=== PATIENT | female | born 1985 | race Caucasian/White ===

== ENCOUNTER 2017-09-22 12:20 | Day surgery (SDC) | payer OTHER ==
[~2017-09-22 12:20] MED LIST: HYDROCODONE/APAP 5/325 TAB PO SCH
--- NOTE | 2017-09-22 12:58 | EDPHY ---
H & P Stated Complaint: pt states is newly with spotting and cramping Time Seen by Provider: 09/22/17 12:57 HPI/ROS: CHIEF COMPLAINT: Vaginal spotting, positive home HISTORY OF PRESENT ILLNESS: The patient is a P0, G0 32 y/o female with a history of PCOS arriving with her for evaluation of vaginal spotting for the last 7 days and a positive home test last night. Her last menstrual period was in June, but she normally has irregular periods. She and her began trying to get for the last month. Over the last 7 days she has noticed small drops of brown blood with associated lower abdominal cramping, bloating, back pain, and breast tenderness. She denies fever , flank pain, dysuria, sore throat, recent illness, or recent trauma. She is otherwise healthy. REVIEW OF SYSTEMS: A ten point review of systems was performed and is negative with the exception of the items mentioned in the HPI. She has had a mild cough and rhinorrhea over the last month that was evaluated by her PCP. Past medical history: 1. PCOS Past surgical history: Denies Family history: Noncontributory Social history: at bedside. Nonsmoker. Drinks wine once per week. OBGYN : JASVIR Farias [facility] General Appearance: Alert. Vital signs reviewed. * Eyes: Pupils equal and round, no conjunctival injection, no discharge. Anicteric. ENT, Mouth: Mucous membranes are moist, no oropharyngeal erythema or edema. Neck: No lymphadenopathy, supple. Respiratory: Lungs are clear to auscultation; no wheezes, rales, or rhonchi. Cardiovascular: Regular rate and rhythm; no murmur, rub, or gallop. Gastrointestinal: Abdomen is soft and nontender, no masses or organomegaly, bowel sounds normal. Skin: Warm and dry, no rashes on exposed skin, normal color. Back: Nontender to palpation over the thoracolumbar spine. No CVAT. Extremities: No lower extremity edema, no calf tenderness or swelling. Neurological: Alert and oriented. Moving all four extremities easily and equally. Psychiatric: Normal affect. - Personal History LMP (Females 10-55): Over 28 Days Ago Current Tetanus/Diphtheria Vaccine: No - Medical/Surgical History Hx Asthma: No Hx Chronic Respiratory Disease: No Hx Diabetes: No Hx Cardiac Disease: No Hx Renal Disease: No Hx Cirrhosis: No Hx Alcoholism: No Hx HIV/AIDS: No Hx Splenectomy or Spleen Trauma: No Other PMH: denies - Social History Smoking Status: Never smoked Constitutional: Initial Vital Signs Temperature (C) 36.9 C 09/22/17 12:24 Heart Rate 90 09/22/17 12:24 Respiratory Rate 16 09/22/17 12:24 Blood Pressure 104/81 H 09/22/17 12:24 O2 Sat (%) 98 09/22/17 12:24 O2 Delivery Mode Room Air Allergies/Adverse Reactions: No Known Allergies Allergy (Verified 09/22/17 15:35) Home Medications: Medication Instructions Recorded Herbals/Supplements -Info Only 1 ea PO DAILY 09/22/17 Medical Decision Making - Diagnostics Imaging Results: Imaging Impressions Obstetrics Ultrasound 09/22/17 13:42 Impression: Unruptured right ectopic . Results called to Dr. Coles. Imaging: Discussed imaging studies w/ mold shop supervisor Radiologist ED Course/Re-evaluation: This is a healthy 32 y/o female with a history of PCOS who presents with a 7- day history of mild vaginal spotting with associated abdominal cramping, back pain, and breast tenderness. A home test was positive last night. Her exam is unremarkable. Plan for basic labs including BHCG quant, Rh+, and possible pelvic US. Last PO intake 11:00. BHCG quant positive at 7300. Pelvic US ordered. Rh positive. US shows unruptured right tubal ectopic . OBGYN paged. [phone]: Consulted with Dr. Gomez OBGYAna. She plans to take patient to the operating room. I have explained this to the patient and her . Hospital bed has been requested. Patient remains NPO. Differential Diagnosis: Considered a differential diagnosis that includes but is not limited to ectopic , threatened , pain and bleeding associated with early intrauterine , chorionic hemorrhage. - Data Points Laboratory Results: Laboratory Results 09/22/17 12:45 09/22/17 09/22/17 09/22/17 12:48 12:45 12:45 WBC 11.00 10^3/uL H 10^3/uL (3.80-9.50) RBC 4.88 10^6/uL 10^6/uL (4.18-5.33) Hgb 13.6 g/dL g/dL (12.6-16.3) Hct 41.1 % % (38.0-47.0) MCV 84.2 fL fL (81.5-99.8) MCH 27.9 pg pg (27.9-34.1) MCHC 33.1 g/dL g/dL (32.4-36.7) RDW 15.9 % H % (11.5-15.2) Plt Count 308 10^3/uL 10^3/uL (150-400) MPV 11.5 fL fL (8.7-11.7) Neut % (Auto) 58.4 % % (39.3-74.2) Lymph % (Auto) 34.8 % % (15.0-45.0) [place] % (Auto) 5.6 % % (4.5-13.0) Eos % (Auto) 0.6 % % (0.6-7.6) Baso % (Auto) 0.4 % % (0.3-1.7) Nucleat RBC Rel Count 0.0 % % (0.0-0.2) Absolute Neuts (auto) 6.42 10^3/uL 10^3/uL (1.70-6.50) Absolute Lymphs (auto) 3.83 10^3/uL H 10^3/uL (1.00-3.00) Absolute Monos (auto) 0.62 10^3/uL 10^3/uL (0.30-0.80) Absolute Eos (auto) 0.07 10^3/uL 10^3/uL (0.03-0.40) Absolute Basos (auto) 0.04 10^3/uL 10^3/uL (0.02-0.10) Absolute Nucleated RBC 0.00 10^3/uL 10^3/uL (0-0.01) Immature Gran % 0.2 % % (0.0-1.1) Immature Gran # 0.02 10^3/uL 10^3/uL (0.00-0.10) Beta HCG, Quant 7369.70 mIU/mL H mIU/mL (0.00-4.83) Patient ABO/Rh A POSITIVE Departure - Departure Disposition: [facility] Inpatient Acute Clinical Impression: Ectopic Qualifiers: Location of ectopic : tubal Intrauterine status: without intrauterine Laterality: right Qualified Code(s): O00.101 - Right tubal without intrauterine Condition: Fair Report Scribed for: Treasure Coles Report Scribed by: Angelina Darden Date of Report: 09/22/17 Time of Report: 13:38 Physician Review and Approval Statement: 09/22/17 12:58 Portions of this note were transcribed by the medical language specialist. I, Dr. Treasure Coles, personally performed the history, physical exam, and medical decision- making; and confirmed the accuracy of the information in the transcribed note.
[2017-09-22 13:02] LABS: PLATELET COUNT 308 10^3/uL (150-400)
[2017-09-22 15:50] VITALS: PULSE 89
[2017-09-22] MEDS ORDERED: LR 1,000 ML IV ONE (15:51)
[2017-09-22] MEDS ORDERED: BUPIVACAINE 0.5% 30 ML SDV ONE (15:53)
[2017-09-22] MEDS ORDERED: SILVER NITRATE APPLICATOR 1 APPL TP ONE (15:54)
[2017-09-22] MEDS ORDERED: MIDAZOLAM 2 MG/2 ML VIAL IVP ONE (15:58)
--- NOTE | 2017-09-22 15:58 | PDANEPAE ---
ANE History of Present Illness 32 yo for lap for ruptured ectopic ANE Past Medical History - Cardiovascular History Hx Hypertension: No Hx Arrhythmias: No Hx Chest Pain: No Hx Coronary Artery / Peripheral Vascular Disease: No Hx CHF / Valvular Disease: No Hx Palpitations: No - Pulmonary History Hx COPD: No Hx Asthma/Reactive Airway Disease: No Hx Recent Upper Respiratory Infection: No Hx Oxygen in Use at Home: No Hx Sleep Apnea: No - Endocrine History Hx Diabetes: No ANE Review of Systems Review of Systems: - Exercise capacity METS (RN): 4 METS ANE Patient History - Allergies Allergies/Adverse Reactions: No Known Allergies Allergy (Verified 09/22/17 15:35) - Home Medications Home Medications: Herbals/Supplements -Info Only 1 ea PO DAILY 09/22/17 [Last Taken Unknown] - NPO status NPO Since - Liquids (Date): 09/22/17 NPO Since - Liquids (Time): 11:00 NPO Since - Solids (Date): 09/22/17 NPO Since - Solids (Time): 14:30 - Smoking Hx Smoking Status: Never smoked ANE Labs/Vital Signs - Labs Result Diagrams: 09/22/17 12:45 - Vital Signs Blood Pressure: 132/83 Heart Rate: 89 Respiratory Rate: 16 O2 Sat (%): 99 Height: 5 ft 2 in Weight: 64.41 kg ANE Physical Exam - Airway Neck exam: FROM Mallampati Score: Class 2 Mouth exam: normal dental/mouth exam - Pulmonary Pulmonary: no respiratory distress - Cardiovascular Cardiovascular: regular rate and rhythym - ASA Status ASA Status: I, E ANE Anesthesia Plan Anesthesia Plan: general endotracheal anesthesia
[2017-09-22] MEDS ORDERED: PROPOFOL/EMULSION 500 MG/50 ML BOTTLE IV ONE (16:00)
[2017-09-22] MEDS ORDERED: fentaNYL 250 MCG/5 ML INJ ONE (16:00)
[2017-09-22] MEDS ORDERED: MIDAZOLAM 2 MG/2 ML VIAL ONE (16:11)
[2017-09-22] MEDS ORDERED: ceFAZolin 2 GM/SWFI 20 ML SYR IVP ONE (16:18)
--- NOTE | 2017-09-22 17:08 | GHP ---
[f rep st] HISTORY AND PHYSICAL DATE OF ADMISSION: 09/22/2017 ADMITTING DIAGNOSIS: 1. Pelvic pain. 2. Ectopic . HISTORY OF PRESENT ILLNESS: The patient is a 32-year-old, 1, para 0, with a history of PCOS and irregular menstrual cycles. She thinks LMP was the end of May. She comes in with complaints of 2 weeks of lower pelvic pain and cramping, as well as 1 week of spotting. She had a positive urine test done at home last night. Patient presents to the emergency room with her . She and her began trying to get at the beginning of this month. Over the last 7 days she had noticed small drops of brown blood with associated lower abdominal cramping. She endorses bloating and breast tenderness. Denies any fever, chills, nausea, vomiting. She has never had a Pap smear and does not see a routing equipment tender. She recently relocated to [place], and has seen Dinora TAY, here at [facility]. OBSTETRIC HISTORY: Patient is nulliparous. GYNECOLOGIC HISTORY: Age of menarche 14. Cycles are irregular, with a history of PCOS. The patient has never had a Pap smear. Denies any exposure to sexually transmitted diseases. PAST MEDICAL HISTORY: PCOS. PAST SURGICAL HISTORY: Unremarkable. FAMILY HISTORY: Noncontributory. SOCIAL HISTORY: Patient is . She lives with her . She denies any tobacco or illicit drug use. She drinks a glass of wine nightly. MEDICATIONS: None. ALLERGIES: No known drug allergies. REVIEW OF SYSTEMS: A 10-point review of systems is negative. Pertinent positives noted in HPI. LABS: Hemoglobin 13.6, hematocrit 41.1. Beta hCG 7369. Patient is A positive. STUDIES: Transvaginal ultrasound shows a yolk sac is present in the right adnexa surrounded by a round thickened ring, likely represents a focally thickened Fallopian tube. pole is not identified, nor is a heart rate. This is separate from the right ovary, which has a 3.5 cm corpus luteal cyst. There is no free fluid. Endometrium is thickened without an intrauterine fluid collection. Left ovary is unremarkable. There is normal Doppler flow to both ovaries. PHYSICAL EXAMINATION: VITAL SIGNS: On admission, vital signs are stable. GENERAL: Patient is alert, oriented x3, well-nourished, well-developed female in no apparent distress. CARDIOVASCULAR: Regular rate and rhythm. LUNGS: Clear to auscultation without wheezes, rales, or rhonchi. ABDOMEN: Soft, nondistended, mild tenderness b/l lower abdomen. PELVIC: Deferred. EXTREMITIES: Normal to inspection without calf tenderness or edema. ASSESSMENT/PLAN: Patient is a 32-year-old with unsure LMP who presents with lower abdominal pelvic pain, spotting and an ectopic noted on ultrasound. 1. Admit to the PACU. 2. Discussed findings of ultrasound with patient. Recommend proceeding to the operating room for surgical removal of the tube containing the . 3. Surgical consents were obtained. We discussed risks, benefits, alternatives of the procedure including, but not limited to, bleeding, infection , and damage to surrounding organs. Patient understands all risks at this time and wants to proceed to the OR. 4. Antibiotics sanitation director to the OR. 5. SCDs for DVT prophylaxis. 6. Patient is Rh positive, no RhoGam is needed. /[id number]/MODL MTDD
[2017-09-22] MEDS ORDERED: NALOXONE HCL 0.4 MG/ML INJ IVP PRN (17:24)
[2017-09-22] MEDS ORDERED: ONDANSETRON 4 MG/2 ML VIAL IVP PRN (17:24)
[2017-09-22] MEDS ORDERED: HYDROmorphONE/DILAUDID 1 MG/ML INJ IVP PRN (17:24)
[2017-09-22] MEDS ORDERED: fentaNYL 100 MCG/2 ML INJ IVP PRN (17:24)
--- NOTE | 2017-09-22 17:40 | POSTANESTH ---
Post Anesthetic Evaluation Cardiovascular Status: Normal, Stable Respiratory Status: Similar to Pre-op Cond. Level of Consciousness/Mental Status: Can Participate in Eval Pain Control: Adequate, Prn Tx Ordered Nausea/Vomiting Control: Adequate, Prn Tx Ordered Complications Possibly Related to Anesthesia: None Noted
--- NOTE | 2017-09-22 17:43 | POSTOPPROG ---
Post Op Note Date of Operation: 09/22/17 Surgeon: Ewelina Gomez Cement Despatch Operator: Supriya Hdz Anesthesiologist: Dr. Melvin Anesthesia: GET(General Endotracheal) Pre-op Diagnosis: Pelvic pain; Ectopic Post-op Diagnosis: Pevlic pain; Ectopic ; unruptured R ectopic Indication: 32 y/o G1 with ?LMP with lower pelvic pain, spotting and +UPT w/ ectopic Procedure: Dx Laparoscopy with R salpingectomy and removal of ectopic Findings: Grossly normal ut, L tube, & ovary; R ectopic noted-unrupt. and 3 cm CLC Inf/Abcess present in the surg proc area at time of surgery?: No Depth: Organ Space EBL: 50-100 (50 cc) Total fluids administered: 1300 cc LR UO: 200 cc clear urine Complications: None Specimen(s): R fallopian tube with
[2017-09-22] MEDS ORDERED: ceFAZolin 2 GM/SWFI 2 GM/20 ML SYR IVP ONE (17:46)
[2017-09-22] MEDS ORDERED: HYDROCODONE/APAP 5/325 TAB PO PRN (17:48)
[2017-09-22] MEDS ORDERED: HYDROCODONE/APAP 5/325 TAB ONE (18:25)
[2017-09-22] MEDS ORDERED: HYDROmorphONE/DILAUDID 1 MG/ML INJ ONE (18:25)
[2017-09-22 19:06] VITALS: BP 114/82; RESP 16
[2017-09-22 19:23] VITALS: TEMP 97.9
[2017-09-22 19:57] VITALS: O2SAT 97
--- NOTE | 2017-09-25 09:47 | GOP ---
[f rep st] OPERATIVE REPORT DATE OF OPERATION: 09/22/2017 SURGEON: Ewelina Gomez DO PROSTHETICS ASSISTANT: JENNIFER Lira ANESTHESIA: General. PREOPERATIVE DIAGNOSIS: 1. Pelvic pain. 2. Ectopic . POSTOPERATIVE DIAGNOSIS: 1. Pelvic pain. 2. Ectopic . 3. Unruptured right ectopic . PROCEDURE PERFORMED: Laparoscopic right salpingectomy with removal of ectopic . FINDINGS: Grossly normal-appearing uterus, left tube and left ovary. There was an unruptured right ectopic located in the isthmic of the fallopian tube. Upper abdomen is grossly normal appearing. All specimens sent to Pathology. SPECIMENS: Right fallopian tube with ectopic . ESTIMATED BLOOD LOSS: 50 cc. INDICATIONS: Patient is a 32-year-old 1, para 0 with unsure last menstrual period, with a history of irregular cycles secondary to PCOS, who presents to the emergency room with complaints of 2 weeks of pelvic pain and 1 week of brownish, red spotting. The patient did have a positive home test yesterday. Ultrasound was performed in the emergency department showing a right ectopic . After discussion with the patient and , decision was made to perform laparoscopic surgery to remove the ectopic . Surgical consents were obtained. We discussed the risks, benefits, alternatives of procedure including but not limited to bleeding, infection, damage to surrounding organs. Patient understands all risks of the procedure and wants to proceed with surgery at this time. Pt is Rh positive and no RhoGAM is needed. DESCRIPTION OF PROCEDURE: Patient was taken to the operating room, where general anesthesia was obtained without difficulty. The patient was prepped and draped in the usual sterile manner and placed in dorsal lithotomy position. A marsh catheter was placed in the bladder. An open-sided speculum was then placed in the vagina. The anterior lip of the cervix was grasped with a single- tooth tenaculum. Uterus was gently sounded to 8 cm, and then an acorn uterine manipulator was placed through the cervix. Speculum was then removed. Attention was turned to the abdomen. Infraumbilical area was injected with 0.5% plain Marcaine and a 5 mm infraumbilical incision was made with the scalpel. The Veress needle was introduced into the peritoneal cavity while tenting the abdominal wall. Aspiration was negative. Pneumoperitoneum was then created with CO2 gas. A 5 mm trocar with scope was then introduced through the infraumbilical incision under direct visualization showing good entry into peritoneal cavity and good visualization of pelvis. More l0.5% plain Marcaine was and another 5 mm incision was made in the left lower quadrant and a 10 mm incision was made in the right lower quadrant. Trocars were then placed with good visualization of the pelvis. Patient was placed in Trendelenburg position. Pelvic findings noted as above. At this time, a grasper was placed through the left lower quadrant port and the fimbria of the right fallopian tube was grasped. The LigaSure was used to cauterize the mesosalpinx multiple times up to the cornual insertion of the tube. The right tube was then excised from the uterus. Using the 10 mm right lower quadrant port, an EndoCinch bag was placed down through this port, and the right fallopian tube with ectopic was then placed into this pouch and removed through the incision without any difficulty. The pelvis was then irrigated with normal saline. The pedicle did appear hemostatic. The 10 mm fascia was then closed with 0 Vicryl on a SR needle. All instruments were then removed from the abdomen, and CO2 gas was allowed to escape. The two 5 mm incisions and 10 mm skin incision was then closed with Dermabond. The Marsh was removed and all instruments were removed from the vagina. Hemostasis was noted. Patient tolerated the procedure well, no complications. Sponge, instrument, and needle counts correct x2. The patient was then taken out of dorsal lithotomy position, awakened, and sent to PACU in stable condition. COMPLICATIONS: None. IV FLUIDS: 1300 cc LR. URINE OUTPUT: 200 cc of clear urine at the end of procedure. /[id number]/MODL MTDD
== END 2017-09-22 19:55 | disposition home or self-care (01) ==
LOC: UNDOADMOB 15:15 → FSGY 15:38
PROVIDERS: ATTEND Obstetrics & Gynecology
PROC: 0UT54ZZ Resection of Right Fallopian Tube, Percutaneous Endoscopic Approach (ICD-10-PCS; principal; 2017-09-22 16:00)
DX: O00.111 Right tubal pregnancy with intrauterine pregnancy (principal); R10.2 Pelvic and perineal pain
CPT/HCPCS: J0690; J1170; J2250; J2704; J3010

== ENCOUNTER 2017-09-28 16:01 | Emergency (ER) | payer OTHER ==
[2017-09-28] MEDS ORDERED: NS 1,000 ML IV ONE ×2 (16:40→16:41)
[2017-09-28 16:43] LABS: PLATELET COUNT 296 10^3/uL (150-400)
[2017-09-28] MEDS ORDERED: IBUPROFEN 600 MG TAB PO ONE (16:45)
--- NOTE | 2017-09-28 16:45 | EDPHY ---
H & P Stated Complaint: hemorrhoids/ VAG BLEED, ECTOPIC PG W/ SURGERY Time Seen by Provider: 09/28/17 16:40 HPI/ROS: HPI: This is a 32-year-old female presents with Chief Complaint: hemorrhoids/ VAG BLEED, ECTOPIC PG W/ SURGERY Location: GI Quality: Hemorrhoids Duration: 1 day Signs and Symptoms: no fever, no nausea, no vomiting, no hematemesis, + blood in stool, + abdominal bloating, no diarrhea, no back pain, no urinary symptoms, no vaginal discharge, + vaginal bleeding, no indigestion, no chest pain, no shortness of breath Timing: Sudden Severity: Moderate Context: Patient has a history of right on ruptured ectopic that was surgically removed on 09/22/[address] Gomez. Reports that she has been going through 2-3 maxi pads per day due to vaginal spotting since the surgery. She had not had a bowel movement in over a week. She took multiple laxatives and gave herself 3 enemas without relief until yesterday evening. She admits to straining considerably and having a large BM that was streaked with blood and she also noted blood on her toilet tissue. She reports that her abdominal discomfort and bloating had stopped after having a bowel movement yesterday evening. She woke up this morning with vaginal bleeding, clots, dark red blood and approximately soaking 1 pad every 3 hr. She denies any fever/urinary symptoms/back pain/chills/nausea/vomiting. She reports that she has been compliant with pelvic rest. . Blood type positive; not given RhoGAM. Modifying Factors: See above Comment: ROS: see HPI Constitutional: No fever, no chills, no weight loss Eyes: No blurred vision Respiratory: No shortness of breath, no cough Cardiovascular: No chest pain, no palpitations Gastrointestinal: No nausea, no vomiting, no diarrhea, no hematemesis, no blood in stool Genitourinary: No dysuria, no blood in urine Extremities: No myalgias, no edema Neurologic: No weakness, no numbness Skin: No rashes, no petechiae Hematologic: No bruising, no bleeding MEDICAL/SURGICAL/SOCIAL HISTORY: Medical history: Generally healthy. Does not take any regular medications. Surgical history: Ectopic surgery Social history: . CONSTITUTIONAL: Tearful but well-appearing adult female, awake and alert , no obvious distress HEENT: Atraumatic and normocephalic, PERRL, EOMI. Tympanic membranes clear. Oropharynx clear, no exudate and moist pink mucosa. Airway patent. No lymphadenopathy. No meningismus. Cardiovascular: Normal S1/S2, regular rate, regular rhythm, without murmur rub or gallop. PULMONARY/CHEST: Symmetrical and nontender. Clear to auscultation bilaterally. Good air movement. No accessory muscle usage. ABDOMEN: Soft, nondistended, nontender, no rebound, no guarding, no peritoneal signs, no masses or organomegaly. No CVAT. PELVIC: normal external genitalia, normal cervix, cervical os was closed, no cervical motion tenderness, no adnexal mass, no discharge, no bleeding. The exam was performed with a plastic surgery coordinator. RECTAL: Good sphincter tone, light brown stool in vault, small non thrombosed external hemorrhoid at 4 o'clock position, no fissures, no palpable masses, guaiac negative EXTREMITIES: 2/2 pulses, strength 5/5, no deformities, no clubbing, no cyanosis or edema. NEUROLOGICAL: no focal neuro deficits. GCS 15. SKIN: Warm and dry, no erythema. no rash. Good capillary refill. Source: Patient, Family () Exam Limitations: No limitations - Personal History LMP (Females 10-55): Now Current Tetanus/Diphtheria Vaccine: Unsure - Medical/Surgical History Hx Asthma: No Hx Chronic Respiratory Disease: No Hx Diabetes: No Hx Cardiac Disease: No Hx Renal Disease: No Hx Cirrhosis: No Hx Alcoholism: No Hx HIV/AIDS: No Hx Splenectomy or Spleen Trauma: No Other PMH: denies - Social History Smoking Status: Never smoked Constitutional: Initial Vital Signs Temperature (C) 36.7 C 09/28/17 16:15 Heart Rate 81 09/28/17 16:15 Respiratory Rate 18 09/28/17 16:15 Blood Pressure 104/84 H 09/28/17 16:15 O2 Sat (%) 96 09/28/17 16:15 O2 Delivery Mode Room Air Allergies/Adverse Reactions: No Known Allergies Allergy (Verified 09/28/17 16:14) Home Medications: Medication Instructions Recorded Hydrocortisone Acetate 25 mg [place] Q6 PRN #7 supp 09/28/17 [Hemorrhoidal Hc 25 mg supp (*)] IBUPROFEN 09/28/17 Polyethylene Glycol 3350 [Miralax 17 gm PO DAILY #20 pkt 09/28/17 17 gm (*)] Medical Decision Making - Diagnostics Imaging Results: Imaging Impressions Pelvic/Renal Ultrasound 09/28/17 16:41 Impression: 1. There is a 1.4 cm small follicular cyst associated with the right ovary, with no evidence of torsion or free fluid. 2. There is some presumed blood identified within the endocervical canal (with no intrinsic vascularity) in this patient with some vaginal bleeding. Findings were discussed with Satya Johnson MD at 18:12, on 09/28/2017. Abdomen X-Ray 09/28/17 17:18 Impression: Severe constipation. ED Course/Re-evaluation: Labs, urinalysis, IV fluids, KUB, IV medications, pelvic ultrasound ordered No signs of endometritis/thrombosed hemorrhoid/coagulopathy/anemia Serum HCG 189.27; appropriately decreased Patient politely refused transvaginal ultrasound as well as pelvic exam. Dr. Johnson called by Radiology and advised that ultrasound shows: 1.4 cm small follicular cyst associated with the right ovary, with no evidence of torsion or free fluid. 2. There is some presumed blood identified within the endocervical canal (with no intrinsic vascularity) in this patient with some vaginal bleeding. KUB shows moderate to severe constipation. No signs of obstruction. Will start on MiraLax and given Anusol HC suppositories. Follow up with OBGYN early next week. Patient does not have a surgical abdomen; passed p.o. trial prior to discharge. Comfortable and denies any pain. This patient was seen under the supervision of my secondary supervising physician. I evaluated care for this patient independently. Discussed this patient with Dr. Johnson who did not see the patient. Patient's presentation, labs/imaging, treatment and plan of care were discussed with secondary supervising physician. Differential Diagnosis: Differential diagnosis includes but is not limited to constipation, obstipation , small-bowel obstruction, external hemorrhoids, internal hemorrhoids, lower GI bleeding, pelvic hemorrhage. - Data Points Laboratory Results: Laboratory Results 09/28/17 16:30 09/28/17 16:30 09/28/17 09/28/17 09/28/17 17:40 16:30 16:30 WBC RBC Hgb Hct MCV MCH MCHC RDW Plt Count MPV Neut % (Auto) Lymph % (Auto) [place] % (Auto) Eos % (Auto) Baso % (Auto) Nucleat RBC Rel Count Absolute Neuts (auto) Absolute Lymphs (auto) Absolute Monos (auto) Absolute Eos (auto) Absolute Basos (auto) Absolute Nucleated RBC Immature Gran % Immature Gran # PT 13.5 SEC SEC (12.0-15.0) INR 1.01 (0.83-1.16) APTT 24.7 SEC SEC (23.0-38.0) Sodium 142 mEq/L mEq/L (134-144) Potassium 4.0 mEq/L mEq/L (3.5-5.2) Chloride 107 mEq/L mEq/L (97-110) Carbon Dioxide 24 mEq/l mEq/l (22-31) Anion Gap 11 mEq/L mEq/L (8-16) BUN 11 mg/dL mg/dL (7-23) Creatinine 0.6 mg/dL mg/dL (0.6-1.0) Estimated GFR > 60 Glucose 90 mg/dL mg/dL (70-100) Calcium 9.0 mg/dL mg/dL (8.5-10.4) Beta HCG, Quant 189.29 mIU/mL H mIU/mL (0.00-4.83) Urine Color PALE YELLOW Urine Appearance CLEAR Urine pH 6.0 (5.0-7.5) Ur Specific [place] 1.004 (1.002-1.030) Urine Protein NEGATIVE (NEGATIVE) Urine Ketones NEGATIVE (NEGATIVE) Urine Blood 3+ H (NEGATIVE) Urine Nitrate NEGATIVE (NEGATIVE) Urine Bilirubin NEGATIVE (NEGATIVE) Urine Urobilinogen NEGATIVE EU EU (0.2-1.0) Ur Leukocyte Esterase NEGATIVE (NEGATIVE) Urine RBC 25-50 /hpf H /hpf (0-3) Urine WBC 3-5 /hpf H /hpf (0-3) Ur Epithelial Cells TRACE /lpf /lpf (NONE-1+) Urine Bacteria TRACE /hpf H /hpf (NONE SEEN) Urine Mucus TRACE /lpf /lpf (NONE-1+) Urine Glucose NEGATIVE (NEGATIVE) 09/28/17 16:30 WBC 12.04 10^3/uL H 10^3/uL (3.80-9.50) RBC 4.75 10^6/uL 10^6/uL (4.18-5.33) Hgb 13.5 g/dL g/dL (12.6-16.3) Hct 40.3 % % (38.0-47.0) MCV 84.8 fL fL (81.5-99.8) MCH 28.4 pg pg (27.9-34.1) MCHC 33.5 g/dL g/dL (32.4-36.7) RDW 15.3 % H % (11.5-15.2) Plt Count 296 10^3/uL 10^3/uL (150-400) MPV 12.0 fL H fL (8.7-11.7) Neut % (Auto) 60.2 % % (39.3-74.2) Lymph % (Auto) 30.1 % % (15.0-45.0) [place] % (Auto) 8.0 % % (4.5-13.0) Eos % (Auto) 1.1 % % (0.6-7.6) Baso % (Auto) 0.3 % % (0.3-1.7) Nucleat RBC Rel Count 0.0 % % (0.0-0.2) Absolute Neuts (auto) 7.24 10^3/uL H 10^3/uL (1.70-6.50) Absolute Lymphs (auto) 3.63 10^3/uL H 10^3/uL (1.00-3.00) Absolute Monos (auto) 0.96 10^3/uL H 10^3/uL (0.30-0.80) Absolute Eos (auto) 0.13 10^3/uL 10^3/uL (0.03-0.40) Absolute Basos (auto) 0.04 10^3/uL 10^3/uL (0.02-0.10) Absolute Nucleated RBC 0.00 10^3/uL 10^3/uL (0-0.01) Immature Gran % 0.3 % % (0.0-1.1) Immature Gran # 0.04 10^3/uL 10^3/uL (0.00-0.10) PT INR APTT Sodium Potassium Chloride Carbon Dioxide Anion Gap BUN Creatinine Estimated GFR Glucose Calcium Beta HCG, Quant Urine Color Urine Appearance Urine pH Ur Specific [place] Urine Protein Urine Ketones Urine Blood Urine Nitrate Urine Bilirubin Urine Urobilinogen Ur Leukocyte Esterase Urine RBC Urine WBC Ur Epithelial Cells Urine Bacteria Urine Mucus Urine Glucose Medications Given: Discontinued Medications Sodium Chloride (Ns) 1,000 mls @ 0 mls/hr IV ONCE ONE PRN Reason: Wide Open Stop: 09/28/17 16:42 Last Admin: 09/28/17 16:43 Dose: 1,000 mls Sodium Chloride (Ns) 1,000 mls @ 0 mls/hr IV EDNOW ONE; Wide Open PRN Reason: Protocol Stop: 09/28/17 16:41 Last Admin: 09/28/17 16:43 Dose: 1,000 mls Ibuprofen (Motrin) 600 mg PO EDNOW ONE Stop: 09/28/17 16:46 Last Admin: 09/28/17 16:57 Dose: Not Given Morphine Sulfate (Morphine) 2 mg IVP EDNOW ONE Stop: 09/28/17 16:53 Last Admin: 09/28/17 16:56 Dose: 2 mg Departure - Departure Disposition: Home, Routine, Self-Care Clinical Impression: External hemorrhoids without complication, Postoperative vaginal bleeding following genitourinary procedure Constipation Qualifiers: Constipation type: slow transit constipation Qualified Code(s): K59.01 - Slow transit constipation Condition: Good Instructions: Constipation (ED) Additional Instructions: Please take MiraLax daily x 7 days and then use daily as needed for constipation. Consume a minimum of 8-10 glasses of water or electrolyte fluid replacement drinks that include Gatorade, Powerade, Pedialyte. Eat a bland diet for the next 48 hours and then slowly advance as tolerated. Please consistent continue to observe pelvic rest until cleared by Dr. Gomez. Follow up with Dr. Gomez early next week. Referrals: [facility],. [Clinic] - As per Instructions Ewelina Gomez DO [Doctor of Osteopathy] - 2-3 days without fail Prescriptions: Hydrocortisone Acetate [Hemorrhoidal Hc 25 mg supp (*)] 25 mg WA Q6 PRN #7 supp PRN Reason: Inflammation Polyethylene Glycol 3350 [Miralax 17 gm (*)] 17 gm PO DAILY #20 pkt
[2017-09-28 17:01] LABS: INR 1.01 (0.83-1.16); PROTIME(PATIENT) 13.5 SEC (12.0-15.0)
[2017-09-28 18:57] VITALS: BP 110/69; PULSE 78; RESP 14; TEMP 98.3; O2SAT 95
== END 2017-09-28 18:55 | disposition home or self-care (01) ==
PROC: 3E0337Z Introduction of Electrolytic and Water Balance Substance into Peripheral Vein, Percutaneous Approach (ICD-10-PCS; principal; 2017-09-28)
DX: N99.820 Postprocedural hemorrhage of a genitourinary system organ or structure following a genitourinary system procedure (principal); N93.9 Abnormal uterine and vaginal bleeding, unspecified; K64.4 Residual hemorrhoidal skin tags; E86.9 Volume depletion, unspecified
CPT/HCPCS: 96374

== ENCOUNTER 2018-01-26 21:39 | Emergency (ER) | payer OTHER ==
[2018-01-26 22:52] LABS: PLATELET COUNT 267 10^3/uL (150-400)
--- NOTE | 2018-01-27 00:06 | EDPHY ---
H & P Smoking Status: Never smoked Time Seen by Provider: 01/26/18 22:13 HPI/ROS: CHIEF COMPLAINT: Abdominal pain HISTORY OF PRESENT ILLNESS: 32-year-old female presents to the emergency department with right upper quadrant abdominal pain that began this morning. She states that the pain has been intermittent but present all day. No nausea or vomiting. Her appetite has been normal. It is not worsened after eating. It does feel a bit worse with lying flat. No other URI symptoms. No cough. No urinary symptoms. No history of kidney stones. Last menstrual period was 2 months ago. She had an ectopic in September which required surgery and took Provera as prescribed by her OBGYN in November and has not had a period since that time. She has some mild low back pain. She denies chest pain or difficulty breathing. No reported trauma. Normal bowel movement today. REVIEW OF SYSTEMS: Constitutional: No fever, no chills. Eyes: No double or blurry vision. ENT: No sore throat. Respiratory: No cough, no shortness of breath. Cardiac: No chest pain. Gastrointestinal: Abdominal pain as above. No vomiting or diarrhea Genitourinary: No dysuria. Musculoskeletal: No neck or back pain. Skin: No rashes. Neurological: No headache. (Maria Knowles) Past Medical/Surgical History: Ankylosing spondylitis with left hip pain, ectopic requiring surgery September 2017 (Maria Knowles) Social History: and lives in [place] (Maria Knowles) Physical Exam: General Appearance: Alert, no distress. Afebrile. No apparent distress. 96% on room air. Not short of breath. Eyes: Pupils equal and round. Extraocular motions are all intact. ENT: Mouth: Mucous membranes moist. Respiratory: No wheezing, rhonchi, or rales, lungs are clear to auscultation. Unable to recreate pain in her right lateral chest wall with palpation. Cardiovascular: Regular rate and rhythm. Gastrointestinal: Abdomen is soft. It is mildly distended. Minimal tenderness with palpation of the right upper quadrant. There is no masses, rebound or guarding noted. No CVA tenderness bilaterally. Neurological: Alert and oriented x 3, cranial nerves II through XII grossly intact Skin: Warm and dry, no rashes. Musculoskeletal: Nontender to palpate along the cervical, thoracic or lumbar spine. Neck is supple. Extremities: Full range of motion and no peripheral edema. Psychiatric: Patient is oriented X 3, there is no agitation. (Maria Knowles) Constitutional: Initial Vital Signs Temperature (C) 36.9 C 01/26/18 21:53 Heart Rate 91 01/26/18 21:53 Respiratory Rate 18 01/26/18 21:53 Blood Pressure 119/80 01/26/18 21:53 O2 Sat (%) 96 01/26/18 21:53 O2 Delivery Mode Room Air Allergies/Adverse Reactions: No Known Allergies Allergy (Verified 01/26/18 21:58) Home Medications: Medication Instructions Recorded Hydrocortisone Acetate 25 mg [place] Q6 PRN #7 supp 09/28/17 [Hemorrhoidal Hc 25 mg supp (*)] IBUPROFEN 09/28/17 Polyethylene Glycol 3350 [Miralax 17 gm PO DAILY #20 pkt 09/28/17 17 gm (*)] Medical Decision Making - Diagnostics Imaging Results: Imaging Impressions Abdomen Ultrasound 01/26/18 22:39 Impression: Negative. No cholelithiasis, biliary dilation, hydronephrosis or free fluid. Findings discussed with Emergency Department physician psychology assistant, MARIA KNOWLES at 01/26/2018 23:16. ED Course/Re-evaluation: 32-year-old female presents to the emergency department with abdominal pain. Laboratory studies reveal normal CBC, chemistries are normal. Urinalysis reveals no signs of infection. Gallbladder ultrasound is normal. Chest x-rays unremarkable. Patient was discussed with Dr. Penaloza, secondary supervising physician, who also evaluated the patient and agrees with discharge, treatment and plan. (Maria Knowles) ED PA DICTATION I evaluated and participated in the management of the patient. I also evaluated the patient independently. My co-signature indicates that I have reviewed this chart and I agree with the findings and plan of care as documented. My personal H&P findings include: 32-year-old female with left- sided abdominal and chest pain. Workup is unremarkable. I met with her and examined her and she has no tenderness on exam of her chest wall or abdomen. I doubt any sinister cause of her pain. (Kelsey Penaloza) Differential Diagnosis: Including but not limited to kidney stone, pyelonephritis, urinary tract infection, ectopic , cholecystitis, cholelithiasis, GERD, peptic ulcer disease (Maria Knowles) - Data Points Laboratory Results: Laboratory Results 01/26/18 22:46 01/26/18 22:46 01/26/18 01/26/18 01/26/18 22:46 22:46 22:46 WBC 9.62 10^3/uL H 10^3/uL (3.80-9.50) RBC 5.08 10^6/uL 10^6/uL (4.18-5.33) Hgb 13.9 g/dL g/dL (12.6-16.3) Hct 43.2 % % (38.0-47.0) MCV 85.0 fL fL (81.5-99.8) MCH 27.4 pg L pg (27.9-34.1) MCHC 32.2 g/dL L g/dL (32.4-36.7) RDW 14.9 % % (11.5-15.2) Plt Count 267 10^3/uL 10^3/uL (150-400) MPV 12.4 fL H fL (8.7-11.7) Neut % (Auto) 49.3 % % (39.3-74.2) Lymph % (Auto) 42.8 % % (15.0-45.0) [place] % (Auto) 6.2 % % (4.5-13.0) Eos % (Auto) 1.1 % % (0.6-7.6) Baso % (Auto) 0.4 % % (0.3-1.7) Nucleat RBC Rel Count 0.0 % % (0.0-0.2) Absolute Neuts (auto) 4.73 10^3/uL 10^3/uL (1.70-6.50) Absolute Lymphs (auto) 4.12 10^3/uL H 10^3/uL (1.00-3.00) Absolute Monos (auto) 0.60 10^3/uL 10^3/uL (0.30-0.80) Absolute Eos (auto) 0.11 10^3/uL 10^3/uL (0.03-0.40) Absolute Basos (auto) 0.04 10^3/uL 10^3/uL (0.02-0.10) Absolute Nucleated RBC 0.00 10^3/uL 10^3/uL (0-0.01) Immature Gran % 0.2 % % (0.0-1.1) Immature Gran # 0.02 10^3/uL 10^3/uL (0.00-0.10) Sodium 144 mEq/L mEq/L (135-145) Potassium 4.2 mEq/L mEq/L (3.5-5.2) Chloride 106 mEq/L mEq/L (97-110) Carbon Dioxide 25 mEq/l mEq/l (22-31) Anion Gap 13 mEq/L mEq/L (8-16) BUN 10 mg/dL mg/dL (7-23) Creatinine 0.6 mg/dL mg/dL (0.6-1.0) Estimated GFR > 60 Glucose 94 mg/dL mg/dL (70-100) Calcium 9.6 mg/dL mg/dL (8.5-10.4) Total Bilirubin 1.0 mg/dL mg/dL (0.1-1.4) Conjugated Bilirubin 0.4 mg/dL mg/dL (0.0-0.5) Unconjugated Bilirubin 0.6 mg/dL mg/dL (0.0-1.1) AST 22 IU/L IU/L (14-46) ALT 33 IU/L IU/L (9-52) Alkaline Phosphatase 75 IU/L IU/L (38-126) Total Protein 8.1 g/dL g/dL (6.3-8.2) Albumin 4.4 g/dL g/dL (3.5-5.0) Lipase 151 IU/L IU/L (23-300) Beta HCG, Qual NEGATIVE Urine Color Urine Appearance Urine pH Ur Specific [place] Urine Protein Urine Ketones Urine Blood Urine Nitrate Urine Bilirubin Urine Urobilinogen Ur Leukocyte Esterase Urine RBC Urine WBC Ur Epithelial Cells Urine Glucose 01/26/18 22:37 WBC RBC Hgb Hct MCV MCH MCHC RDW Plt Count MPV Neut % (Auto) Lymph % (Auto) [place] % (Auto) Eos % (Auto) Baso % (Auto) Nucleat RBC Rel Count Absolute Neuts (auto) Absolute Lymphs (auto) Absolute Monos (auto) Absolute Eos (auto) Absolute Basos (auto) Absolute Nucleated RBC Immature Gran % Immature Gran # Sodium Potassium Chloride Carbon Dioxide Anion Gap BUN Creatinine Estimated GFR Glucose Calcium Total Bilirubin Conjugated Bilirubin Unconjugated Bilirubin AST ALT Alkaline Phosphatase Total Protein Albumin Lipase Beta HCG, Qual Urine Color PALE YELLOW Urine Appearance CLEAR Urine pH 7.0 (5.0-7.5) Ur Specific [place] 1.002 (1.002-1.030) Urine Protein NEGATIVE (NEGATIVE) Urine Ketones NEGATIVE (NEGATIVE) Urine Blood NEGATIVE (NEGATIVE) Urine Nitrate NEGATIVE (NEGATIVE) Urine Bilirubin NEGATIVE (NEGATIVE) Urine Urobilinogen NEGATIVE EU EU (0.2-1.0) Ur Leukocyte Esterase NEGATIVE (NEGATIVE) Urine RBC 1-3 /hpf /hpf (0-3) Urine WBC Not Reported Ur Epithelial Cells TRACE /lpf /lpf (NONE-1+) Urine Glucose NEGATIVE (NEGATIVE) Departure - Departure Disposition: Home, Routine, Self-Care Clinical Impression: Abdominal pain Qualifiers: Abdominal location: upper abdomen, unspecified Qualified Code(s): R10.10 - Upper abdominal pain, unspecified Condition: Good Instructions: Acute Abdominal Pain (ED) Additional Instructions: Abdominal Pain: Return to the Emergency Department immediately for increasing pain, fever, vomiting, or if not completely better in 8-12 hours. Referrals: Kleber Su MD [[facility] Primary Care Provider] - As per Instructions (Primary care provider)
[2018-01-27 00:59] VITALS: BP 111/72
== END 2018-01-27 00:59 | disposition home or self-care (01) ==
DX: R10.11 Right upper quadrant pain (principal)

== ENCOUNTER 2018-01-28 09:27 | Emergency (ER) | payer OTHER ==
[2018-01-28 09:33] VITALS: BP 133/83
--- NOTE | 2018-01-28 09:38 | EDPHY ---
H & P Stated Complaint: Right side abdo pain for 2 days and increased swelling. Time Seen by Provider: 01/28/18 09:37 HPI/ROS: HPI: This is a 32-year-old female who presents with Chief Complaint: Right side abdominal pain for 2 days and increased swelling. Location: Right upper quadrant, right flank, right thoracic Quality: Cramping pain Duration: 4-5 days Signs and Symptoms: no fever, no nausea, no vomiting, no hematemesis, no blood in stool, no abdominal bloating, no diarrhea, + mid right-sided back pain, no urinary symptoms, no vaginal bleeding/discharge, no indigestion, no chest pain, no shortness of breath Timing: Worsening Severity: Moderate Context: Patient reports that she is generally healthy presents for the 2nd time to the emergency room in the last 2 days complaining of worsening, moderate right upper quadrant/right flank/right thoracic area cramping pain. She reports that she feels incredibly bloated and is not passing gas from below. She ate several small meals yesterday without any difficulty and deny nausea, vomiting, fever, diarrhea. She reports that she only drinks 2 L of water a day and believes that she may be constipated. 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 Last traveled home in July 2017. She denies any chest pain/shortness of breath/palpitations. Chart review shows that she was in the emergency room on 01/26/2018 with normal laboratory workup including chemistries and LFTs, urinalysis was unremarkable no signs of infection or hematuria, chest x-ray did not show any opacity/effusion/ pneumothorax, right upper quadrant ultrasound showed normal gallbladder. Patient reports that she has had a small hard bowel movement yesterday. Denies any blood in her stool. Denies hemorrhoids. I saw this patient in September of 2017 with complaints of constipation and external hemorrhoids non-thrombosed. Patient was given prescription for Anusol HC and MiraLax at that time. She reports that she took MiraLax approximately for 7 days and then stopped taking it. 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 She is taking NSAIDs for this. Modifying Factors: None Comment: ROS: see HPI Constitutional: No fever, no chills, no weight loss Eyes: No blurred vision Respiratory: No shortness of breath, no cough Cardiovascular: No chest pain, no palpitations Gastrointestinal: No nausea, no vomiting, no diarrhea, no hematemesis, no blood in stool Genitourinary: No dysuria, no blood in urine Extremities: No myalgias, no edema Neurologic: No weakness, no numbness Skin: No rashes, no petechiae Hematologic: No bruising, no bleeding MEDICAL/SURGICAL/SOCIAL HISTORY: Medical/Surgical history: ankylosing spondylosis, ectopic - with related surgery-still taking Provera Social history: [email or web address] student. . Family history noncontributory. CONSTITUTIONAL: Extremely well-appearing polite and cooperative adult female, awake and alert, no obvious distress HEENT: Atraumatic and normocephalic, PERRL, EOMI. Nares patent; no rhinorrhea; no nasal mucosal edema. Tympanic membranes clear. Oropharynx clear, no exudate and moist pink mucosa. Airway patent. No lymphadenopathy. No meningismus. Cardiovascular: Normal S1/S2, regular rate, regular rhythm, without murmur rub or gallop. PULMONARY/CHEST: Symmetrical and nontender. Clear to auscultation bilaterally. Good air movement. No accessory muscle usage. ABDOMEN: Soft, mildly distended, nontender, no rebound, no guarding, no peritoneal signs, no masses or organomegaly. No CVAT. Hypoactive bowel sounds heard x4 quadrants. Abdominal bloating noted. Negative Leblanc sign. EXTREMITIES: 2/2 pulses, strength 5/5, no deformities, no clubbing, no cyanosis or edema. NEUROLOGICAL: no focal neuro deficits. GCS 15. SKIN: Warm and dry, no erythema. no rash. Good capillary refill. Source: Patient, Old records Exam Limitations: No limitations - Personal History LMP (Females 10-55): Over 28 Days Ago Current Tetanus Diphtheria and Acellular Pertussis (TDAP): Unsure - Medical/Surgical History Hx Asthma: No Hx Chronic Respiratory Disease: No Hx Diabetes: No Hx Cardiac Disease: No Hx Renal Disease: No Hx Cirrhosis: No Hx Alcoholism: No Hx HIV/AIDS: No Hx Splenectomy or Spleen Trauma: No Other PMH: ankylizing spondylosis, ectopic preg - with related surg - Social History Smoking Status: Never smoked Constitutional: Initial Vital Signs Temperature (C) 36.6 C 01/28/18 09:28 Heart Rate 99 01/28/18 09:28 Respiratory Rate 16 01/28/18 09:28 Blood Pressure 133/83 H 01/28/18 09:28 O2 Sat (%) 98 01/28/18 09:28 O2 Delivery Mode Room Air Allergies/Adverse Reactions: No Known Allergies Allergy (Verified 01/26/18 21:58) Home Medications: Medication Instructions Recorded Magnesium Citrate [Magnesium 300 ml PO ONCE #1 bottle 01/28/18 Citrate 300 ml (*)] Sod Phos,M-B/Na Phos,Di-Ba [Fleet 133 ml RC ONCE #1 enema 01/28/18 Enema] Medical Decision Making - Diagnostics Imaging Results: Imaging Impressions Abdomen X-Ray 01/28/18 09:44 Impression: Chronic versus recurrent constipation.. ED Course/Re-evaluation: Patient had a full negative workup approximately 2 days ago. I suspect that she is experiencing gas pain associated with constipation. Vital signs reviewed and stable. No systemic signs. Abdomen is soft and minimally tender. Doubt surgical process. Will proceed with two-view abdominal x-ray. Reviewed abdominal x-ray which shows significant stool burden in the right upper quadrant and right lower quadrant as well as the rectal vault. No signs of obstruction. Patient has opted to be discharged home with Magnesium Citrate and Fleet enema. This patient was seen under the supervision of my secondary supervising physician. I evaluated care for this patient independently. Discussed this patient with Dr. Pete who did not see the patient. Differential Diagnosis: Abdominal pain including but not limited to appendicitis, cholecystitis, constipation, small-bowel obstruction gastritis and urinary tract infection. Departure - Departure Disposition: Home, Routine, Self-Care Clinical Impression: Constipation Qualifiers: Constipation type: slow transit constipation Qualified Code(s): K59.01 - Slow transit constipation Condition: Good Instructions: Constipation (ED), High Fiber Diet (ED) Additional Instructions: Consume a minimum of 8-10 glasses of water or electrolyte fluid replacement drinks that include Gatorade, Powerade, Pedialyte. Eat a bland soft primarily liquid diet for the next 48 hours and then slowly advance as tolerated. Take MiraLax daily x7 days and then daily as needed for constipation. Eat a diet rich in fruits and vegetables. Drink Magnesium Citrate 150 mL x1 when you arrive home. If no bowel movement in 3-4 hours, drink the other 150 mL Magnesium citrate. Perform fleets enema when you arrive home. Apply heating pad to your stomach as needed for abdominal cramps. Return to the ER immediately if you experience new, continued or worsening abdominal pain, fevers/chills, inability to tolerate oral intake, new pain, or any other symptoms that concern you. Referrals: Margaret Mcarthur MD [Medical Doctor] - As per Instructions Prescriptions: Magnesium Citrate [Magnesium Citrate 300 ml (*)] 300 ml PO ONCE #1 bottle Sod Phos,M-B/Na Phos,Di-Ba [Fleet Enema] 133 ml RC ONCE #1 enema
== END 2018-01-28 10:20 | disposition home or self-care (01) ==
DX: K59.01 Slow transit constipation (principal)